=== PATIENT | female | born 1985 | race Caucasian/White ===

== ENCOUNTER 2016-04-20 08:42 | Inpatient (IN) | payer MEDICAID ==
[2016-04-20] MEDS ORDERED: NALOXONE HCL 0.4 MG/ML INJ ONE (08:51)
--- NOTE | 2016-04-20 09:02 | EDPHY ---
H & P HPI/ROS: Chief complaint. Heroin overdose HPI. 22-year-old female here by EMS after heroin overdose. Apparently she was found passed out in a yd. [place] [employer] was contacted the patient got up and ran but shortly thereafter collapsed again. She had heroin and equipment on her person. Apparently she has been smoking heroin today. EMS was not able to get IV access. ROS Constitutional. Generalized weakness Eyes. no problems with vision ENT. no sore throat, no nasal drainage Cardiovascular. no chest pain Respiratory. Slow breathing Abdominal. no abdominal pain, no nausea/vomiting, no diarrhea . no problems urinating MS. no calf pain/swelling, no neck/back pain, no joint pain Skin. no rash Lymph. no swollen glands Neuro. Difficulty walking and responsive only to verbal stimuli Past Medical/Surgical History: Apparent IV DA Social History: Unknown and patient is nonverbal currently Physical Exam: General Appearance: Arousable well-developed female slow breathing moderate distress. Vital signs show O2 saturation 85% on room air Eyes: Pupils are pinpoint. ENT, pharynx without injection or swelling Respiratory: Slow respirations with inspiratory expiratory rhonchi. Periods of apnea Cardiovascular: Regular rate and rhythm. Gastrointestinal: Abdomen is soft and nontender, no masses, bowel sounds normal. Neurological: Awake and alert, sensory and motor exams grossly normal. Skin: Warm and dry, no rashes. Musculoskeletal: Neck is supple nontender. Extremities symmetrical, full range of motion. Psychiatric: Patient is arousable to verbal stimuli Constitutional: Initial Vital Signs Temperature (C) 36.5 C 04/20/16 08:42 Heart Rate 104 H 04/20/16 08:42 Respiratory Rate 8 L 04/20/16 08:42 Blood Pressure 122/106 H 04/20/16 08:42 O2 Sat (%) 85 L 04/20/16 08:42 O2 Delivery Mode Non-Rebreather Mask O2 (L/minute) 15 Allergies/Adverse Reactions: Penicillins Allergy (Verified 04/20/16 14:55) Rash Home Medications: Medication Instructions Recorded NK [No Known Home Meds] 04/20/16 Medical Decision Making - Diagnostics Imaging: Chest x-ray shows hypoventilation but no obvious pneumonia Procedures: Patient is given small amount of Narcan intranasally as we do not have IV access yet. Her respirations go from periods of apnea and then deep breath to more regular respirations. ED Course/Re-evaluation: IV is established. After the intranasal Narcan patient is not having the apneic spells and still arousable only to verbal stimuli 9:55 a.m. patient will be given 0.3 mg of Narcan IV Patient is given a total of 1.8 mg of Narcan. She is observed for 3 and 0.5 hours in the department and is certainly better more arousable though sleepy in between times. Her breathing is now normal. I consulted and discussed the case Dr. diaz, hospitalist who agrees to the admission Differential Diagnosis: This appears to be heroin overdose and the patient had heroin on her per police. I suspect there may be other medications contributing to her somnolence. She is now stable. - Data Points Laboratory Results: Laboratory Results 04/20/16 09:20 04/20/16 09:20 04/20/16 04/20/16 04/20/16 09:20 09:20 09:20 WBC 9.45 10^3/uL 10^3/uL (3.80-9.50) RBC 4.86 10^6/uL 10^6/uL (4.18-5.33) Hgb 14.7 g/dL g/dL (12.6-16.3) Hct 42.5 % % (38.0-47.0) MCV 87.4 fL fL (81.5-99.8) MCH 30.2 pg pg (27.9-34.1) MCHC 34.6 g/dL g/dL (32.4-36.7) RDW 12.5 % % (11.5-15.2) Plt Count 356 10^3/uL 10^3/uL (150-400) MPV 9.0 fL fL (8.7-11.7) Neut % (Auto) 59.7 % % (39.3-74.2) Lymph % (Auto) 31.5 % % (15.0-45.0) Rice % (Auto) 6.8 % % (4.5-13.0) Eos % (Auto) 1.4 % % (0.6-7.6) Baso % (Auto) 0.4 % % (0.3-1.7) Nucleat RBC Rel Count 0.0 % % (0.0-0.2) Absolute Neuts (auto) 5.64 10^3/uL 10^3/uL (1.70-6.50) Absolute Lymphs (auto) 2.98 10^3/uL 10^3/uL (1.00-3.00) Absolute Monos (auto) 0.64 10^3/uL 10^3/uL (0.30-0.80) Absolute Eos (auto) 0.13 10^3/uL 10^3/uL (0.03-0.40) Absolute Basos (auto) 0.04 10^3/uL 10^3/uL (0.02-0.10) Absolute Nucleated RBC 0.00 10^3/uL 10^3/uL (0-0.01) Immature Gran % 0.2 % % (0.0-1.1) Immature Gran # 0.02 10^3/uL 10^3/uL (0.00-0.10) Sodium 140 mEq/L mEq/L (134-144) Potassium 3.8 mEq/L mEq/L (3.5-5.2) Chloride 99 mEq/L mEq/L (97-110) Carbon Dioxide 28 mEq/l mEq/l (22-31) Anion Gap 13 mEq/L mEq/L (8-16) BUN 12 mg/dL mg/dL (7-23) Creatinine 0.8 mg/dL mg/dL (0.6-1.0) Estimated GFR > 60 Glucose 103 mg/dL H mg/dL (70-100) Calcium 10.0 mg/dL mg/dL (8.5-10.4) Beta HCG, Qual NEGATIVE Medications Given: Discontinued Medications Naloxone HCl (Narcan) 0.1 mg NASAL EDNOW ONE Stop: 04/20/16 09:08 Last Admin: 04/20/16 09:22 Dose: 0.1 mg Naloxone HCl (Narcan) 0.4 mg IVP EDNOW ONE Stop: 04/20/16 09:47 Last Admin: 04/20/16 10:13 Dose: 0.4 mg Naloxone HCl (Narcan) 0.3 mg IVP EDNOW ONE Stop: 04/20/16 10:08 Last Admin: 04/20/16 10:13 Dose: 0.3 mg Naloxone HCl (Narcan) 1 mg IVP EDNOW ONE Stop: 04/20/16 10:14 Last Admin: 04/20/16 10:29 Dose: 1 mg Departure - Departure Disposition: [facility] Clinical Impression: Heroin overdose Qualifiers: Encounter type: initial encounter Injury intent: accidental or unintentional Qualified Code(s): T40.1X1A - Poisoning by heroin, accidental (unintentional), initial encounter Condition: Fair
[2016-04-20] MEDS ORDERED: NALOXONE HCL 0.4 MG/ML INJ NASAL ONE (09:07)
[2016-04-20 09:34] LABS: % IMMATURE GRANULYOCYTES 0.2 % (0.0-1.1); ABSOLUTE IMMATURE GRANULOCYTES 0.02 10^3/uL (0.00-0.10); ADD DIFF? NO; ADD MORPH? NO; ADD SCAN? NO; ATYPICAL LYMPHOCYTE FLAG 20 (0-99); FRAGMENT RBC FLAG 0 (0-99); HEMATOCRIT 42.5 % (38.0-47.0); HEMOGLOBIN 14.7 g/dL (12.6-16.3); LEFT SHIFT FLG 0 (0-99); LIPEMIA HEMOLYSIS FLAG 90 (0-99); MEAN CELL HEMOGLOBIN 30.2 pg (27.9-34.1); MEAN CELL HEMOGLOBIN CONCENTR. 34.6 g/dL (32.4-36.7); MEAN CELL VOLUME 87.4 fL (81.5-99.8); PLATELET CLUMPS FLAG 0 (0-99); PLATELET COUNT 356 10^3/uL (150-400); RED BLOOD CELL COUNT 4.86 10^6/uL (4.18-5.33); RED CELL DISTRIBUTION WIDTH 12.5 % (11.5-15.2)
[2016-04-20 09:46] LABS: ANION GAP 13 mEq/L (8-16); CARBON DIOXIDE 28 mEq/l (22-31); CHLORIDE 99 mEq/L (97-110); CREATININE 0.8 mg/dL (0.6-1.0); GLOMERULAR FILTRATION RATE > 60; GLUCOSE 103 mg/dL (70-100); POTASSIUM 3.8 mEq/L (3.5-5.2); SODIUM 140 mEq/L (134-144)
[2016-04-20] MEDS ORDERED: NALOXONE HCL 0.4 MG/ML INJ IVP ONE ×3 (09:46→10:13)
[2016-04-20] MEDS ORDERED: NALOXONE HCL 2 MG/2 ML SYR IVP ONE (10:16)
[2016-04-20] MEDS ORDERED: ACETAMINOPHEN 325 MG TAB PO PRN (14:33)
[2016-04-20] MEDS ORDERED: ONDANSETRON 4 MG/2 ML VIAL IVP PRN (14:33)
[2016-04-20] MEDS ORDERED: ONDANSETRON DISINTEGRATING 4 MG TAB PO PRN (14:33)
[2016-04-20] MEDS ORDERED: NALOXONE HCL 0.4 MG/ML INJ IVP PRN (14:34)
[2016-04-20] MEDS ORDERED: NS 1,000 ML IV SCH (14:45)
--- NOTE | 2016-04-20 16:06 | GHP ---
[f rep st] HISTORY AND PHYSICAL DATE OF ADMISSION: 04/20/2016 CHIEF COMPLAINT: Found down. HISTORY OF PRESENT ILLNESS: This is a 30-year-old female, with a known history of heroin abuse. Memo macdonald apparently found passed out in the yard with heroin on her person. Currently, she is more arousab le and not really answering questions. REVIEW OF SYSTEMS: Unable to be obtained. PAST MEDICAL HISTORY: IV drug abuse. SOCIAL HISTORY: IV drug abuse. FAMILY HISTORY: Unable to be obtained. PHYSICAL EXAM: VITAL SIGNS: Afebrile. Blood pressure is 122/104, heart rate 91, oxygen saturation 99% on room air. GENERAL: The patient is well developed, in no apparent distress. HEENT: Nonict kareem sclerae. EOM are intact. Moist mucous membranes. NECK: Supple. LUNGS: Poor effort. Clear to auscultation bilaterally. CARDIAC: Regular rate, rhythm. No murmurs, rubs, or gallops. ABDOM EN: Positive bowel sounds. Soft, nontender, nondistended. No hepatosplenomegaly. EXTREMITIES: N o clubbing, cyanosis, or edema. SKIN: Without rash. Multiple track cook in multiple areas. NEUR OLOGIC: Arousable, but somnolent. LABORATORY DATA: CBC and chemistry are negative. Chest x-ray is negative. ASSESSMENT: This is a 30-year-old female presenting with heroin overdose: We will continue to watc h the patient in the SCU. Use Narcan p.r.n. although she seems to be improving. We will have to ge t more information in terms of her social status. /[id number]/MODL
[2016-04-20] MEDS ORDERED: NS BOLUS 1000 ML (Wide open) IV ONE (22:55)
[2016-04-20] MEDS ORDERED: LORazepam 0.5 MG TAB PO PRN ×2 (23:30→23:43)
[2016-04-21 08:17] VITALS: TEMP 98.7
[2016-04-21 12:18] VITALS: O2SAT 99
[2016-04-21 16:00] VITALS: BP 91/60; PULSE 72; RESP 15
== END 2016-04-21 17:10 | disposition home or self-care (01) | DRG 918 ==
LOC: EEVIPCON 11:52 → F2N 13:53 → OBSVTOIN 14:33
PROVIDERS: ADMIT Internal Medicine; ATTEND Internal Medicine
DX: T40.1X1A Poisoning by heroin, accidental (unintentional), initial encounter (principal); F11.20 Opioid dependence, uncomplicated
CPT/HCPCS: J2310

== ENCOUNTER 2016-08-13 07:19 | Emergency (ER) | payer MEDICAID ==
[2016-08-13 07:23] VITALS: O2SAT 96
--- NOTE | 2016-08-13 08:02 | EDPHY ---
H & P Stated Complaint: L flank pain x 3 wks;recent tx for "kidney infection" at an . Time Seen by Provider: 08/13/16 07:30 HPI/ROS: CHIEF COMPLAINT: Persistent left flank pain HISTORY OF PRESENT ILLNESS: The patient presents to the ED with complaints of persistent left flank pain. The patient reportedly was treated for urinary tract infection several weeks ago. She believes that she was on Macrobid bit at that point time. She finished the antibiotic 10 days ago. Since that time she has had recurrence and worsening of her left flank pain. The patient also reports associated nausea. The patient currently is traveling around the country following the [place] . The patient denies significant past medical history aside from narcotic dependency. She denies any recent IV drug use. The patient denies any additional acute complaints. The patient was hospitalized earlier this year following a reported heroin overdose. During that hospitalization she was evaluated for abdominal pain and had a CT scan which demonstrated no evidence of obvious nephrolithiasis or ureterolithiasis. REVIEW OF SYSTEMS: A comprehensive 10 point review of systems is otherwise negative aside from elements mentioned in the history of present illness. Source: Patient Exam Limitations: No limitations - Personal History LMP (Females 10-55): 15-21 Days Ago Current Tetanus Diphtheria and Acellular Pertussis (TDAP): Yes - Medical/Surgical History Hx Asthma: No Hx Chronic Respiratory Disease: No Hx Diabetes: No Hx Cardiac Disease: No Hx Renal Disease: No Hx Cirrhosis: No Hx Alcoholism: No Hx HIV/AIDS: No Hx Splenectomy or Spleen Trauma: No Other PMH: TBIs, drug abuse - Social History Smoking Status: Current every day smoker - Physical Exam Exam: General Appearance: Disheveled, mild discomfort Eyes: Pupils equal and round no pallor or injection ENT, Mouth: Mucous membranes moist Respiratory: There are no retractions, lungs are clear to auscultation Cardiovascular: Regular rate and rhythm Gastrointestinal: Tenderness to palpation noted in the left mid quadrant Back: Left CVA tenderness present Neurological: A&O, normal motor function, normal sensory exam, normal cranial nerves Skin: Warm and dry, no rashes Musculoskeletal: Neck is supple nontender Extremities: symmetrical, full range of motion Constitutional: Initial Vital Signs Temperature (C) 36.2 C 08/13/16 07:20 Heart Rate 88 08/13/16 07:20 Respiratory Rate 18 08/13/16 07:20 Blood Pressure 129/84 H 06/15/17 07:20 O2 Sat (%) 96 08/13/16 07:20 O2 Delivery Mode Room Air Allergies/Adverse Reactions: haloperidol [From Haldol] Allergy (Intermediate, Verified 08/13/16 07:24) dystonic reaction Penicillins Allergy (Verified 04/20/16 14:55) Rash Home Medications: Medication Instructions Recorded Cephalexin [Keflex] 500 mg PO QID #28 cap 08/13/16 Hydrocodone/APAP 5/325 [[place] 1 - 2 each PO Q6 PRN #20 tab 08/13/16 5/325] Ondansetron Odt [Zofran Odt] 4 mg PO Q4PRN PRN #20 tab 08/13/16 Phenazopyridine HCl [Pyridium 200 mg PO TID PRN #10 tab 08/13/16 200mg (RX)] Medical Decision Making ED Course/Re-evaluation: The patient presents to the ED with symptoms suggestive of recurrent pyelonephritis. The patient is noted to have evidence of pyuria and hematuria on her urinalysis. The patient's laboratory studies demonstrate no evidence of renal insufficiency. She has no significant leukocytosis. The patient's vital signs are within normal limits. The patient had an IV established. She received a L of normal saline for clinical dehydration. She also received 1 g of IV ceftriaxone. The patient will be started on oral Keflex. A urine culture will be obtained. The patient will also be prescribed Pyridium. She is discharged home with customary aftercare instructions and return precautions. Differential Diagnosis: Differential diagnosis considered includes pyelonephritis, ectopic , urinary tract infection, dehydration, renal failure, metabolic abnormality, nephrolithiasis - Data Points Laboratory Results: Laboratory Results 08/13/16 07:43 08/13/16 07:45 08/13/16 08/13/16 08/13/16 07:45 07:43 07:43 WBC 6.79 10^3/uL 10^3/uL (3.80-9.50) RBC 4.74 10^6/uL 10^6/uL (4.18-5.33) Hgb 14.0 g/dL g/dL (12.6-16.3) Hct 40.9 % % (38.0-47.0) MCV 86.3 fL fL (81.5-99.8) MCH 29.5 pg pg (27.9-34.1) MCHC 34.2 g/dL g/dL (32.4-36.7) RDW 12.8 % % (11.5-15.2) Plt Count 309 10^3/uL 10^3/uL (150-400) MPV 9.8 fL fL (8.7-11.7) Neut % (Auto) 40.9 % % (39.3-74.2) Lymph % (Auto) 49.8 % H % (15.0-45.0) Gilliam % (Auto) 4.3 % L % (4.5-13.0) Eos % (Auto) 4.1 % % (0.6-7.6) Baso % (Auto) 0.6 % % (0.3-1.7) Nucleat RBC Rel Count 0.0 % % (0.0-0.2) Absolute Neuts (auto) 2.78 10^3/uL 10^3/uL (1.70-6.50) Absolute Lymphs (auto) 3.38 10^3/uL H 10^3/uL (1.00-3.00) Absolute Monos (auto) 0.29 10^3/uL L 10^3/uL (0.30-0.80) Absolute Eos (auto) 0.28 10^3/uL 10^3/uL (0.03-0.40) Absolute Basos (auto) 0.04 10^3/uL 10^3/uL (0.02-0.10) Absolute Nucleated RBC 0.00 10^3/uL 10^3/uL (0-0.01) Immature Gran % 0.3 % % (0.0-1.1) Immature Gran # 0.02 10^3/uL 10^3/uL (0.00-0.10) Sodium 139 mEq/L mEq/L (134-144) Potassium 4.0 mEq/L mEq/L (3.5-5.2) Chloride 104 mEq/L mEq/L (97-110) Carbon Dioxide 22 mEq/l mEq/l (22-31) Anion Gap 13 mEq/L mEq/L (8-16) BUN 10 mg/dL mg/dL (7-23) Creatinine 0.7 mg/dL mg/dL (0.6-1.0) Estimated GFR > 60 Glucose 187 mg/dL H mg/dL (70-100) Calcium 9.4 mg/dL mg/dL (8.5-10.4) Total Bilirubin 1.1 mg/dL mg/dL (0.1-1.4) Conjugated Bilirubin 0.3 mg/dL mg/dL (0.0-0.5) Unconjugated Bilirubin 0.8 mg/dL mg/dL (0.0-1.1) AST 49 IU/L H IU/L (14-46) ALT 16 IU/L IU/L (9-52) Alkaline Phosphatase 64 IU/L IU/L (38-126) Total Protein 7.3 g/dL g/dL (6.3-8.2) Albumin 4.2 g/dL g/dL (3.5-5.0) Lipase 34.0 IU/L IU/L (23-300) Beta HCG, Qual NEGATIVE Urine Color Urine Appearance Urine pH Ur Specific [place] Urine Protein Urine Ketones Urine Blood Urine Nitrate Urine Bilirubin Urine Urobilinogen Ur Leukocyte Esterase Urine RBC Urine WBC Ur Epithelial Cells Urine Mucus Urine Glucose 08/13/16 07:35 WBC RBC Hgb Hct MCV MCH MCHC RDW Plt Count MPV Neut % (Auto) Lymph % (Auto) Gilliam % (Auto) Eos % (Auto) Baso % (Auto) Nucleat RBC Rel Count Absolute Neuts (auto) Absolute Lymphs (auto) Absolute Monos (auto) Absolute Eos (auto) Absolute Basos (auto) Absolute Nucleated RBC Immature Gran % Immature Gran # Sodium Potassium Chloride Carbon Dioxide Anion Gap BUN Creatinine Estimated GFR Glucose Calcium Total Bilirubin Conjugated Bilirubin Unconjugated Bilirubin AST ALT Alkaline Phosphatase Total Protein Albumin Lipase Beta HCG, Qual Urine Color KACI Urine Appearance MODERATELY TURBID Urine pH 5.0 (5.0-7.5) Ur Specific [place] 1.035 H (1.002-1.030) Urine Protein 2+ H (NEGATIVE) Urine Ketones TRACE H (NEGATIVE) Urine Blood NEGATIVE (NEGATIVE) Urine Nitrate NEGATIVE (NEGATIVE) Urine Bilirubin NEGATIVE (NEGATIVE) Urine Urobilinogen 2.0 EU H EU (0.2-1.0) Ur Leukocyte Esterase TRACE H (NEGATIVE) Urine RBC 10-15 /hpf H /hpf (0-3) Urine WBC 25-50 /hpf H /hpf (0-3) Ur Epithelial Cells 3+ /lpf H /lpf (NONE-1+) Urine Mucus 4+ /lpf H /lpf (NONE-1+) Urine Glucose NEGATIVE (NEGATIVE) Medications Given: Discontinued Medications Sodium Chloride (Ns) 1,000 mls @ 0 mls/hr IV ONCE ONE; Wide Open PRN Reason: Protocol Stop: 08/13/16 08:13 Last Admin: 08/13/16 08:18 Dose: 1,000 mls Sodium Chloride (Ns) 1,000 mls @ 0 mls/hr IV ONCE ONE PRN Reason: Wide Open Stop: 08/13/16 08:19 Last Admin: 08/13/16 08:19 Dose: 1,000 mls Departure - Departure Disposition: Home, Routine, Self-Care Clinical Impression: Acute pyelonephritis Condition: Good Instructions: Urinary Tract Infection in Women (ED) Additional Instructions: 1. Take antibiotics as directed for next 7 days. 2. Please use Pyridium as needed for urinary discomfort. 3. Tylenol and ibuprofen as needed for pain. 4. Please schedule a follow-up appointment with the primary care provider you have been referred to. 5. Return to the ED for severe pain, vomiting, high fever or any worsening symptoms. Referrals: [facility],. [Clinic] - As per Instructions Prescriptions: Cephalexin [Keflex] 500 mg PO QID #28 cap Hydrocodone/APAP 5/325 [[place] 5/325] 1 - 2 each PO Q6 PRN #20 tab PRN Reason: for pain Ondansetron Odt [Zofran Odt] 4 mg PO Q4PRN PRN #20 tab PRN Reason: For Nausea
[2016-08-13 08:03] LABS: % IMMATURE GRANULYOCYTES 0.3 % (0.0-1.1); ABSOLUTE IMMATURE GRANULOCYTES 0.02 10^3/uL (0.00-0.10); ADD DIFF? NO; ADD MORPH? NO; ADD SCAN? NO; ATYPICAL LYMPHOCYTE FLAG 20 (0-99); FRAGMENT RBC FLAG 0 (0-99); HEMATOCRIT 40.9 % (38.0-47.0); LEFT SHIFT FLG 0 (0-99); LIPEMIA HEMOLYSIS FLAG 90 (0-99); MEAN CELL HEMOGLOBIN 29.5 pg (27.9-34.1); MEAN CELL HEMOGLOBIN CONCENTR. 34.2 g/dL (32.4-36.7); MEAN CELL VOLUME 86.3 fL (81.5-99.8); MEAN PLATELET VOLUME 9.8 fL (8.7-11.7); PLATELET CLUMPS FLAG 20 (0-99); PLATELET COUNT 309 10^3/uL (150-400); RED BLOOD CELL COUNT 4.74 10^6/uL (4.18-5.33); RED CELL DISTRIBUTION WIDTH 12.8 % (11.5-15.2)
[2016-08-13 08:11] LABS: COLOR AMBER; LEUKOCYTE ESTERASE,URINE TRACE (NEGATIVE); NITRITE,URINE NEGATIVE (NEGATIVE)
[2016-08-13] MEDS ORDERED: NS 1,000 ML IV ONE ×2 (08:12→08:18)
[2016-08-13 08:22] LABS: MUCUS 4+ /lpf (NONE-1+); WBC,URINE 25-50 /hpf (0-3)
[2016-08-13 08:26] LABS: ALANINE AMINOTRANSFERASE 16 IU/L (9-52); ALBUMIN 4.2 g/dL (3.5-5.0); ALKALINE PHOSPHATASE 64 IU/L (38-126); ASPARTATE AMINOTRANSFERASE 49 IU/L (14-46); BILIRUBIN,TOTAL 1.1 mg/dL (0.1-1.4); BILIRUBIN-CONJUGATED 0.3 mg/dL (0.0-0.5); BILIRUBIN-UNCONJUGATED 0.8 mg/dL (0.0-1.1); CALCIUM 9.4 mg/dL (8.5-10.4); CARBON DIOXIDE 22 mEq/l (22-31); CHLORIDE 104 mEq/L (97-110); CREATININE 0.7 mg/dL (0.6-1.0); GLOMERULAR FILTRATION RATE > 60; GLUCOSE 187 mg/dL (70-100); SODIUM 139 mEq/L (134-144); TOTAL PROTEIN 7.3 g/dL (6.3-8.2)
[2016-08-13 08:37] LABS: ANION GAP 13 mEq/L (8-16)
[2016-08-13] MEDS ORDERED: KETOROLAC 30 MG/1 ML SDV ONE (09:55)
[2016-08-13] MEDS ORDERED: KETOROLAC 30 MG/1 ML SDV IVP ONE (10:03)
[2016-08-13 10:28] VITALS: BP 118/74; PULSE 81; RESP 16; TEMP 98.4
== END 2016-08-13 10:27 | disposition home or self-care (01) ==
DX: N10 Acute pyelonephritis (principal); F17.200 Nicotine dependence, unspecified, uncomplicated
CPT/HCPCS: 96365; J0696; J1885

== ENCOUNTER 2017-02-10 10:03 | Emergency (ER) | payer MEDICAID ==
[2017-02-10] MEDS ORDERED: IBUPROFEN 600 MG TAB PO ONE (10:31)
--- NOTE | 2017-02-10 10:45 | EDPHY ---
H & P Time Seen by Provider: 02/10/17 10:12 HPI/ROS: CHIEF COMPLAINT: Left knee pain, left hand injury HISTORY OF PRESENT ILLNESS: 31-year-old female presents to the emergency department by private vehicle with injury to her left knee and left hand. The patient was long boarding and fell sustaining abrasions to her left knee and left hand. She did not hit her head or lose consciousness. Denies neck or back pain. Denies chest pain or difficulty breathing. Denies paresthesias in her upper or lower extremities. Unable to weight bear on her left leg secondary to pain. Patient states last tetanus shot was 1 year ago. REVIEW OF SYSTEMS: Constitutional: No fever, no chills. Eyes: No double or blurry vision. ENT: No sore throat. Respiratory: No cough, no shortness of breath. Cardiac: No chest pain. Gastrointestinal: No abdominal pain, vomiting or diarrhea. Genitourinary: No dysuria. Musculoskeletal: No neck or back pain. Skin: No rashes. Neurological: No headache. Past Medical/Surgical History: TBI, substance abuse Social History: Single Smoking Status: Current every day smoker Physical Exam: General Appearance: Alert, moderate distress. Mentating normally and answering questions appropriately. No visible signs of trauma to her head. She is very tearful and emotional. Eyes: Pupils equal and round. Extraocular motions are all intact. ENT: Mouth: Mucous membranes moist. Respiratory: No wheezing, rhonchi, or rales, lungs are clear to auscultation. Cardiovascular: Regular rate and rhythm. Gastrointestinal: Abdomen is soft and nontender, no masses, no rebound or guarding, bowel sounds normal. Neurological: Alert and oriented x 3, cranial nerves II through XII grossly intact Skin: Superficial abrasions noted to the anterior aspect of the left knee just above the patella. No laceration or puncture wound. Warm and dry, no rashes. Musculoskeletal: Nontender to palpate along the cervical, thoracic or lumbar spine. Neck is supple. Extremities: Limited range of motion of the left knee secondary to pain. She is unable to flex her left knee beyond about 20 degrees. Unable to do straight leg raise secondary to pain. She has some mild tenderness with palpation lateral aspect of the left proximal femur. Full range of motion of the right lower extremity and upper extremities bilaterally. She does have abrasions noted to her left 4th and 5th fingers. Swelling noted to the PIP joint of the left 4th finger. Psychiatric: Patient is oriented X 3, there is no agitation. Constitutional: Initial Vital Signs Temperature (C) 36.6 C 02/10/17 10:03 Heart Rate 89 02/10/17 10:03 Respiratory Rate 20 02/10/17 10:03 Blood Pressure 134/88 H 02/10/17 10:03 O2 Sat (%) 99 02/10/17 10:03 O2 Delivery Mode Room Air Allergies/Adverse Reactions: haloperidol [From Haldol] Allergy (Intermediate, Verified 08/13/16 07:24) dystonic reaction Penicillins Allergy (Verified 04/20/16 14:55) Rash Home Medications: Medication Instructions Recorded Cephalexin [Keflex] 500 mg PO QID #28 cap 08/13/16 Hydrocodone/APAP 5/325 [[place] 1 - 2 each PO Q6 PRN #20 tab 08/13/16 5/325] Ondansetron Odt [Zofran Odt] 4 mg PO Q4PRN PRN #20 tab 08/13/16 Phenazopyridine HCl [Pyridium 200 mg PO TID PRN #10 tab 08/13/16 200mg (RX)] Medical Decision Making - Diagnostics Imaging Results: Imaging Impressions Knee X-Ray 02/10/17 10:16 Impression: No fracture. Femur X-Ray 02/10/17 10:38 Impression: Nothing acute identified. 2. Left Femur, 4 views History: Pain post trauma. Fall off long board. Findings: No fracture is identified. Impression: Negative. Hand X-Ray 02/10/17 10:38 Impression: Nothing acute identified. 2. Left Femur, 4 views History: Pain post trauma. Fall off long board. Findings: No fracture is identified. Impression: Negative. Imaging: I viewed and interpreted images myself ED Course/Re-evaluation: A 31-year-old female presents to the emergency department by private vehicle with injury to her left knee and left hand. X-rays reveal no fractures. Her abrasions were thoroughly cleansed and dressed and she will be discharged with orthopedic follow-up information. Her last tetanus shot was 1 year ago. Differential Diagnosis: Including but not limited to fracture, dislocation, contusion, sprain - Data Points Medications Given: Discontinued Medications Ibuprofen (Motrin) 600 mg PO EDNOW ONE Stop: 12/13/17 10:32 Last Admin: 02/10/17 10:39 Dose: 600 mg Departure - Departure Disposition: Home, Routine, Self-Care Clinical Impression: Contusion of left knee Qualifiers: Encounter type: initial encounter Qualified Code(s): S80.02XA - Contusion of left knee, initial encounter Contusion of left hand Qualifiers: Encounter type: initial encounter Qualified Code(s): S60.222A - Contusion of left hand, initial encounter Condition: Good Instructions: Contusion in Adults (ED), Abrasion (ED), Acute Wounds (ED) Additional Instructions: Ibuprofen 600mg every 8 hours for pain as directed. Weight bear and activity as tolerated. Return if you notice any signs of infection or if you feel worse in any way. Referrals: Zana Beltrán MD [Medical Doctor] - 2-3 days, call for appt. (Orthopedic surgeon on-call)
[2017-02-10] MEDS ORDERED: LET GEL TOPICAL 1 EA SYR TP ONE (12:27)
[2017-02-10 13:14] VITALS: BP 126/82; PULSE 85; RESP 18; TEMP 98.6; O2SAT 97
== END 2017-02-10 13:22 | disposition home or self-care (01) ==
DX: S80.02XA Contusion of left knee, initial encounter (principal); S60.222A Contusion of left hand, initial encounter; F17.200 Nicotine dependence, unspecified, uncomplicated; V00.131A Fall from skateboard, initial encounter; Y99.8 Other external cause status; Y93.51 Activity, roller skating (inline) and skateboarding

== ENCOUNTER 2017-04-01 00:45 | Emergency (ER) | payer MEDICAID ==
[2017-04-01 00:54] VITALS: BP 132/97; PULSE 98; RESP 20; TEMP 98.4; O2SAT 96
--- NOTE | 2017-04-01 01:06 | EDPHY ---
H & P Stated Complaint: ?abcess left neck x2 days, ?another right neck from shooting heroin HPI/ROS: HPI CHIEF COMPLAINT: IV drug use, bilateral neck pain HISTORY OF PRESENT ILLNESS: Patient is a 31-year-old female she is otherwise healthy she has a history of IV drug use and shoots heroin and methamphetamine. She last shot heroin 2 days ago. She did shoots in her arms but additionally she had in her neck. She states for the past 48 hr she has had bilateral lateral neck pain. Where she shot in her neck. She is concerned about an abscess. She denies any fever. Denies chest pain or shortness of breath. No stiff neck. No headache. On the lateral aspect of either side of the neck she has some palpable hardness present. Consistent with either admission shot or phlebitis. There is no redness. There is no abscess. I did confirm this with bedside ultrasound. Past Medical History: IV drug use heroin and meth Past Surgical History: Denies recent surgical history Social History: Daily IV drug use heroin and meth., homeless Family History: Noncontributory ROS REVIEW OF SYSTEMS: A comprehensive 10 point review of systems is otherwise negative aside from elements mentioned in the history of present illness. Exam Constitutional appears well nontoxic triage nursing summary reviewed, vital signs reviewed, awake/alert. Eyes normal conjunctivae and sclera, EOMI, PERRLA. HENT Neck: No evidence of cellulitis or abscess seen on the neck. On both lateral aspects of the neck there is phlebitis present and induration of a superficial neck vein bilaterally. I did confirm this with ultrasound. No fluid collection on ultrasound., moist mucus membranes, no epistaxis, neck supple/ no meningismus, no raccoon eyes. Respiratory clear to auscultation bilaterally, normal breath sounds, no respiratory distress, no wheezing. Cardiovascular rate normal, regular rhythm, no murmur, no edema, distal pulses normal. Gastrointestinal soft, non-tender, no rebound, no guarding, normal bowel sounds, no distension, no pulsatile mass. Genitourinary no CVA tenderness. Musculoskeletal no midline vertebral tenderness, full range of motion, no calf swelling, no tenderness of extremities, no meningismus, good pulses, neurovascularly intact. Skin pink, warm, & dry, no rash, skin atraumatic. Neurologic awake, alert and oriented x 3, AAOx3, moves all 4 extremities equally, motor intact, sensory intact, CN II-XII intact, normal cerebellar, normal vision, normal speech. Psychiatric normal mood/affect. Heme/Lymph/Immune no lymphadenopathy. Differential Diagnosis: Includes but is not limited to in a particular order phlebitis, missed IV injection site, early abscess, early cellulitis Medical Decision Making: Plan for this patient recommend warm compresses 5 times a day for 20 min, I do not feel that she needs any emergent imaging at this time she is hemodynamically stable with stable vital signs, ultrasound shows superficial phlebitis versus miss shot, no fluid collection or abscess. She does not appear toxic. Recommend warm compresses 5 times a day for 20 min. Recommend oral Keflex and Bactrim. Additionally recommend return emergency room if there is worsening symptoms questions or concerns she understands. Source: Patient - Personal History LMP (Females 10-55): 1-7 Days Ago Current Tetanus/Diphtheria Vaccine: Yes - Medical/Surgical History Hx Asthma: Yes Hx Chronic Respiratory Disease: No Hx Diabetes: No Hx Cardiac Disease: No Hx Renal Disease: Yes Hx Cirrhosis: No Hx Alcoholism: No Hx HIV/AIDS: No Hx Splenectomy or Spleen Trauma: No Other PMH: concussions, drug abuse, repeated uti/pain, ovarian cysts - Social History Smoking Status: Current every day smoker Constitutional: Initial Vital Signs Temperature (C) 36.9 C 04/01/17 00:49 Heart Rate 98 04/01/17 00:49 Respiratory Rate 20 04/01/17 00:49 Blood Pressure 132/97 H 04/01/17 00:49 O2 Sat (%) 96 04/01/17 00:49 O2 Delivery Mode Room Air Allergies/Adverse Reactions: haloperidol [From Haldol] Allergy (Intermediate, Verified 04/01/17 00:49) dystonic reaction Penicillins Allergy (Verified 04/01/17 00:49) Rash Home Medications: Medication Instructions Recorded Cephalexin [Keflex] 500 mg PO Q6H #28 cap 04/01/17 Sulfamethox/Tmp 800/160 mg 1 tab PO BID@1000,2200 #14 tab 04/01/17 [Bactrim Ds] Departure - Departure Disposition: Home, Routine, Self-Care Clinical Impression: Phlebitis Condition: Good Instructions: Phlebitis (ED), Superficial Thrombophlebitis (ED) Additional Instructions: 1. Recommend warm compresses 5 times a day for 20 min. 2. Antibiotics as prescribed. 3. Return emergency room if you have worsening pain swelling or fever. Referrals: NONE *PRIMARY CARE P,. [Primary Care Provider] - As per Instructions Prescriptions: Cephalexin [Keflex] 500 mg PO Q6H #28 cap Sulfamethox/Tmp 800/160 mg [Bactrim Ds] 1 tab PO BID@1000,2200 #14 tab
[2017-04-01] MEDS ORDERED: SULFAMETHOX/TMP 800/160 MG 1 TAB PO ONE (01:16)
[2017-04-01] MEDS ORDERED: CEPHALEXIN 500 MG CAP PO ONE (01:16)
[2017-04-01] MEDS ORDERED: CEPHALEXIN 500MG PREPACK#4 BTL TAKEHOME ONE (01:16)
== END 2017-04-01 01:28 | disposition home or self-care (01) ==
DX: I80.9 Phlebitis and thrombophlebitis of unspecified site (principal); F17.200 Nicotine dependence, unspecified, uncomplicated; J45.909 Unspecified asthma, uncomplicated

== ENCOUNTER 2017-05-19 19:31 | Emergency (ER) | payer OTHER, MEDICAID ==
--- NOTE | 2017-05-19 19:39 | EDPHY ---
H & P Time Seen by Provider: 05/19/17 19:33 HPI/ROS: CHIEF COMPLAINT: Head injury HISTORY OF PRESENT ILLNESS: Patient is a 31-year-old female from the longterm who was laughing and swelling her head back and hit it on the metal table. She did not lose consciousness but had an instant headache and vomited. Skilled Nursing staff felt that 1 of her pupils was unequal at center to the emergency department. The patient received Zofran orally. She states she is now feeling much better but still has a mild headache. No neck pain. No hematoma or laceration. She denies other injuries. REVIEW OF SYSTEMS: Constitutional: denies: chills, fever, recent illness, recent injury EENTM: denies: blurred vision, double vision, nose congestion Respiratory: denies: cough, shortness of breath Cardiac: denies: chest pain, irregular heart rate, lightheadedness, palpitations Gastrointestinal/Abdominal: denies: abdominal pain, diarrhea, nausea, vomiting, blood streaked stools Genitourinary: denies: dysuria, frequency, hematuria, pain Musculoskeletal: denies: joint pain, muscle pain Skin: denies: lesions, rash, jaundice, bruising Neurological: See HPI Hematologic/Lymphatic: denies: blood clots, easy bleeding, easy bruising Immunologic/allergic: denies: HIV/AIDS, transplant EXAM: GENERAL: Well-appearing, well-nourished and in no acute distress. HEAD: Atraumatic, normocephalic. EYES: Pupils equal round and reactive to light, extraocular movements intact, sclera anicteric, conjunctiva are normal. ENT: TMs normal, nares patent, oropharynx clear without exudates. Moist mucous membranes. NECK: Normal range of motion, supple without lymphadenopathy or JVD. LUNGS: Breath sounds clear to auscultation bilaterally and equal. No wheezes rales or rhonchi. HEART: Regular rate and rhythm without murmurs, rubs or gallops. ABDOMEN: Soft, nontender, normoactive bowel sounds. No guarding, no rebound. No masses appreciated. BACK: No CVA tenderness, no spinal tenderness, step-offs or deformities EXTREMITIES: Normal range of motion, no pitting or edema. No clubbing or cyanosis. NEUROLOGICAL: Cranial nerves II through XII grossly intact. Normal speech, normal gait. 5/5 strength, normal movement in all extremities, normal sensation PSYCH: Normal mood, normal affect. SKIN: Warm, dry, normal turgor, no visible rashes or lesions. Source: Patient, EMS Exam Limitations: No limitations - Medical/Surgical History Hx Asthma: Yes Hx Chronic Respiratory Disease: No Hx Diabetes: No Hx Cardiac Disease: No Hx Renal Disease: Yes Hx Cirrhosis: No Hx Alcoholism: No Hx HIV/AIDS: No Hx Splenectomy or Spleen Trauma: No Other PMH: concussions, drug abuse, repeated uti/pain, ovarian cysts - Family History Significant Family History: No pertinent family hx - Social History Smoking Status: Current every day smoker Alcohol Use: Sober Drug Use: None Constitutional: Initial Vital Signs Temperature (C) 36.9 C 05/19/17 19:40 Heart Rate 68 05/19/17 19:40 Respiratory Rate 18 05/19/17 19:40 Blood Pressure 134/105 H 05/19/17 19:40 O2 Sat (%) 97 05/19/17 19:40 O2 Delivery Mode Room Air Allergies/Adverse Reactions: haloperidol [From Haldol] Allergy (Intermediate, Verified 04/01/17 00:49) dystonic reaction Penicillins Allergy (Verified 04/01/17 00:49) Rash Home Medications: Medication Instructions Recorded Buspar (*) 05/19/17 NK [No Known Home Meds] 05/19/17 traZODone 05/19/17 Medical Decision Making - Diagnostics Imaging Results: Imaging Impressions Head CT 05/19/17 19:38 Impression: 1. No acute fracture or evidence of acute intracranial injury. 2. Mild bilateral maxillary sinus disease. Findings discussed with Emergency Department physician, Ashutosh Kenney M.D., on May 19, 2017 at 2009. Imaging: Discussed imaging studies w/ square dance caller Radiologist ED Course/Re-evaluation: 8:[address] is reassuring. She still has a mild headache. We discussed concussions and treatment and stepwise return to activity. She understands and agrees with this plan. She will return to longterm. Differential Diagnosis: Partial list of the Differential diagnosis considered include but were not limited to; concussion, anxiety and although unlikely based on the history and physical exam, I also considered fracture, hemorrhage, neck injury. I discussed these differential diagnoses and the plan with the patient as well as the usual and expected course. The patient understands that the diagnosis is provisional and that in medicine we are not always correct and that further workup is often warranted. Usual and customary warnings were given. All of the patient's questions were answered. The patient was instructed to return to the emergency department should the symptoms at all worsen or return, otherwise to followup with the physician as we discussed. - Data Points Medications Given: Discontinued Medications Ibuprofen (Motrin) 600 mg PO EDNOW ONE Stop: 05/19/17 20:12 Last Admin: 05/19/17 20:15 Dose: 600 mg Departure - Departure Disposition: Home, Routine, Self-Care Clinical Impression: Concussion Qualifiers: Encounter type: initial encounter Loss of consciousness presence/duration: without LOC Qualified Code(s): S06.0X0A - Concussion without loss of consciousness, initial encounter Condition: Fair Instructions: Concussion (ED) Referrals: NONE *PRIMARY CARE P,. [Primary Care Provider] - As per Instructions
[2017-05-19 20:09] VITALS: PULSE 68; RESP 18
[2017-05-19] MEDS ORDERED: IBUPROFEN 600 MG TAB PO ONE (20:11)
[2017-05-19 20:23] VITALS: BP 149/93; TEMP 97.7; O2SAT 96
== END 2017-05-19 20:24 | disposition home or self-care (01) ==
LOC: EDUNIT#
DX: S06.0X0A Concussion without loss of consciousness, initial encounter (principal); J45.909 Unspecified asthma, uncomplicated; F17.200 Nicotine dependence, unspecified, uncomplicated; W22.8XXA Striking against or struck by other objects, initial encounter; Y92.149 Unspecified place in prison as the place of occurrence of the external cause; Y99.8 Other external cause status; Y93.89 Activity, other specified

== ENCOUNTER 2018-02-16 07:33 | Emergency (ER) | payer MEDICAID ==
--- NOTE | 2018-02-16 08:12 | EDPHY ---
H & P Stated Complaint: Narcan wake up/Heroin use Time Seen by Provider: 02/16/18 08:04 HPI/ROS: CHIEF COMPLAINT: Heroin overdose HISTORY OF PRESENT ILLNESS: 32-year-old female heroin user presents after a heroin overdose. She is currently staying in a [facility] house and last night smoke hair when. The staff found her this morning unresponsive in bed. They gave her Narcan 4 mg IM. On police arrival, she received a 2nd dose of Narcan 4 mg IM. Vomited x1 in route. She is currently sleepy, but cooperative and able to answer questions. Denies recent illness. She has ongoing abdominal pain related to IBS and GERD without recent change. No suicidal ideation. REVIEW OF SYSTEMS: complete 10 point ROS reviewed and is negative except for the noted elements in the HPI - Medical/Surgical History Hx Asthma: Yes Hx Chronic Respiratory Disease: No Hx Diabetes: No Hx Cardiac Disease: No Hx Renal Disease: Yes Hx Cirrhosis: No Hx Alcoholism: No Hx HIV/AIDS: No Hx Splenectomy or Spleen Trauma: No Other PMH: concussions, drug abuse, repeated uti/pain, ovarian cysts, cellulitis - Social History Smoking Status: Heavy smoker - Physical Exam Exam: General Appearance: Drowsy, opens eyes to voice, cooperative Eyes: Pupils equal and round, no conjunctival pallor or injection ENT, Mouth: Mucous membranes moist Neck: Normal inspection Respiratory: Lungs are clear to auscultation Cardiovascular: Regular rate and rhythm Gastrointestinal: Abdomen is soft, diffuse mild tenderness Neurological: Drowsy, oriented x3, nonfocal exam Skin: Warm and dry Extremities: Normal inspection Psychiatric: Flat affect Constitutional: Initial Vital Signs Temperature (C) 37.1 C 02/16/18 07:38 Heart Rate 119 H 02/16/18 07:38 Respiratory Rate 18 02/16/18 07:38 Blood Pressure 105/65 02/16/18 07:38 O2 Sat (%) 93 02/16/18 07:38 O2 Delivery Mode Room Air O2 (L/minute) 2 Allergies/Adverse Reactions: haloperidol [From Haldol] Allergy (Intermediate, Verified 09/14/17 17:39) dystonic reaction Penicillins Allergy (Verified 09/14/17 17:39) Rash Home Medications: Medication Instructions Recorded Amoxicillin/Clavulanate Pot 875 mg PO BID #14 tab 10/13/17 [Augmentin 875 MG TAB (*)] Doxycycline Hyclate [Vibramycin 100 mg PO BID #14 capsule 10/13/17 100 MG (*)] Medical Decision Making ED Course/Re-evaluation: This patient presents after an unintentional heroin overdose. She is currently drowsy, will observe. She has very difficult IV access and no IV access was obtained. Noon-awake, maintaining a normal oxygen saturation. Will discharge home if able to ambulate with a steady gait. Patient remains alert and is able to walk with a steady gait. Tolerated oral fluids well. Counseled patient regarding heroin abuse. Will be discharged home with mother. Differential Diagnosis: ddx for AMS includes though not limited to hypoglycemia, respiratory failure, CVA, suicidal ideation, infectious etiology - Data Points Medications Given: Discontinued Medications Sodium Chloride (Ns) 1,000 mls @ 0 mls/hr IV EDNOW ONE; Wide Open PRN Reason: Protocol Stop: 02/16/18 08:38 Last Admin: 02/16/18 08:53 Dose: Not Given Ondansetron HCl (Zofran) 4 mg IVP EDNOW ONE Stop: 02/16/18 08:38 Last Admin: 02/16/18 08:53 Dose: Not Given Departure - Departure Disposition: Home, Routine, Self-Care Clinical Impression: Heroin overdose Qualifiers: Encounter type: initial encounter Injury intent: accidental or unintentional Qualified Code(s): T40.1X1A - Poisoning by heroin, accidental (unintentional), initial encounter Condition: Good Instructions: Opioid Use Disorder (ED) Additional Instructions: You overdosed on heroin today. Please seek help for heroin addiction. Referrals: Anderson Cartwright DO [Doctor of Osteopathy] - As per Instructions
[2018-02-16] MEDS ORDERED: ONDANSETRON 4 MG/2 ML VIAL IVP ONE (08:37)
[2018-02-16] MEDS ORDERED: NS 1,000 ML IV ONE (08:37)
[2018-02-16 13:59] VITALS: BP 102/63
--- NOTE | 2018-02-16 17:30 | ASMTCMCOM ---
CM Note CM Note Notes: See ED report for details. This CM met with patient regading disposition and follow up. Patient was released from [facility] on Wednesday, 02/11 to [facility] ([facility]) work release program. She tells me that she was scheduled to receive a Vivitrol shot at [facility] today, but unfortunately she did "smoke heroin" yesterday while out looking for work. Patient's mother is in route to hospital to pick patient up and take her to the [facility]'s Office to check in on her status with work release/incarceration. Patient is tearful and communicative. She is honest about her addiction and the consequenses of it. I have provided patient with a card from Eben Martinez (peer addictions recovery specialist at [facility]) and encouarged her to keep it in her pocket. She states that she has had periods of sobriety while on Vivitrol in the past and that she hopes she can get back on it STEVE. Patient discharged in the care of her mother Date Signed: 02/16/2018 05:30 PM Electronically Signed By:Wendy Garces RN
== END 2018-02-16 13:58 | disposition home or self-care (01) ==
LOC: EDUNIT#
DX: T40.1X1A Poisoning by heroin, accidental (unintentional), initial encounter (principal); E86.9 Volume depletion, unspecified; K21.9 Gastro-esophageal reflux disease without esophagitis; J45.909 Unspecified asthma, uncomplicated; F17.200 Nicotine dependence, unspecified, uncomplicated; Z87.440 Personal history of urinary (tract) infections; Z88.0 Allergy status to penicillin